=== PATIENT | male | born 1990 | race Hispanic/Latino ===

== ENCOUNTER 2017-07-05 13:22 | Emergency (ER) | payer SELFPAY ==
--- NOTE | 2017-07-05 16:21 | Emergency Department Report ---
Blank Doc - Documentation Documentation: 26yo male with PMHx of drug abuse came in complaining of bilateral lymph node swelling for 1 month and states its not getting better. P: cbc,chem, Ct abd/pelvis
[2017-07-05 16:41] LABS: Basophils # (Auto) 0.1 K/mm3 (0.0-0.1); Basophils % (Auto) 0.5 % (0.0-1.8); Eosinophils # (Auto) 0.2 K/mm3 (0.0-0.4); Eosinophils % (Auto) 1.3 % (0.0-4.3); Hematocrit 50.2 % (35.5-45.6); Hemoglobin 17.4 gm/dl (11.8-15.2); Lymphocytes # (Auto) 2.3 K/mm3 (1.2-5.4); Lymphocytes % (Auto) 17.3 % (13.4-35.0); Mean Corpuscular HGB Conc 35 % (32-34); Mean Corpuscular Hemoglobin 31 pg (28-32); Mean Corpuscular Volume 90 fl (84-94); Monocytes # (Auto) 1.2 K/mm3 (0.0-0.8); Platelet Count 367 K/mm3 (140-440); Red Blood Count 5.58 M/mm3 (3.65-5.03); Red Cell Distribution Width 12.8 % (13.2-15.2)
[2017-07-05 16:53] LABS: Bilirubin,Urine NEG (Negative); Blood,Urine NEG (Negative); Color,Urine Amber (Yellow); Mucus,Urine 1+ /HPF; Protein,Urine <15 mg/dL mg/dL (Negative)
[2017-07-05 17:00] LABS: Cocaine Screen,Urine PRESUMPTIVE NEGATIVE; Methadone Screen,Urine PRESUMPTIVE NEGATIVE; Opiate Screen,Urine PRESUMPTIVE NEGATIVE
[2017-07-05 17:05] LABS: Alanine Aminotransferase 9 units/L (7-56); Albumin 4.2 g/dL (3.9-5); BUN/Creatinine Ratio 15; Blood Urea Nitrogen 12 mg/dL (9-20); Calcium 9.6 mg/dL (8.4-10.2); Hemolysis Index 14
[2017-07-05 17:32] LABS: Amphetamine Screen,Urine PRESUMPTIVE POSITIVE; Benzodiazepines Screen,Urine PRESUMPTIVE POSITIVE; Cannabinoid Screen,Urine PRESUMPTIVE POSITIVE
--- NOTE | 2017-07-05 18:37 | Cat Scan Report ---
FINAL REPORT PROCEDURE: CT ABDOMEN PELVIS W CON TECHNIQUE: Computerized axial tomography of the abdomen and pelvis was performed after the IV injection of iodinated nonionic contrast. HISTORY: bilateral inguinal area swelling COMPARISON: No prior studies are available for comparison. FINDINGS: Visualized lower thorax: No significant abnormality. Liver: Normal size and attenuation. Spleen: Normal size and attenuation. Gallbladder and biliary system: Normal. Pancreas: Normal. Adrenals: Normal. Kidneys: Normal. GI tract: There appears to be mild diffuse right colon wall thickening. No appendiceal inflammation. No obstruction. Lymph nodes and mesentery: The inguinal lymph nodes bilaterally are enlarged with central low attenuation, compatible with necrosis/abscess. Largest confluent fluid collection in the right subcutaneous inguinal region measures 1.9 x 3.7 x 4.8 centimeters. Largest area in the left inguinal region subcutaneous tissues measures up to 3.1 x 1.5 x 2.4 centimeters. Vasculature: Normal. Bladder: Normal. Reproductive organs: Normal. Peritoneum: No free fluid. Musculoskeletal structures: Bilateral L5 pars interarticularis defects. Other: None. IMPRESSION: Bilateral necrotic appearing enlarged inguinal lymph nodes may be related to bacterial or atypical infection. Cannot exclude malignant adenopathy. Recommend further evaluation
--- NOTE | 2017-07-05 19:04 | Emergency Department Report ---
ED General Adult HPI - General Chief complaint: Pain General Stated complaint: LYMPHNODES IN GROIN SWOLLEN Time Seen by Provider: 07/05/17 16:06 Source: patient Mode of arrival: Ambulatory Limitations: No Limitations - History of Present Illness Initial comments: 26yo male with PMHx of drug abuse came in complaining of bilateral lymph node swelling for 1 month and states its not getting better. Patient denies any fever chills no abdominal pain or penile discharge or dysuria. He does admit to drug use meth we cocaine. He denies any IVDA user. He sexually active with women but not since is at the lymphadenopathy. Patient reports a family history of breast cancer in the mother's side. He smokes one pack per day. He denies any discharge from the lymph nodes. -: week(s) (4) Location: genitals (bilateral groin) Severity scale (0 -10): 2 Quality: aching Consistency: constant Improves with: none Worsens with: none Associated Symptoms: denies other symptoms Treatments Prior to Arrival: none - Related Data Previous Rx's Medication Instructions Recorded Last Taken Type Ciprofloxacin HCl [Cipro] 500 mg PO BID #28 tablet 07/05/17 Unknown Rx Clindamycin [Clindamycin CAP] 300 mg PO Q6H #40 capsule 07/05/17 Unknown Rx Oxycodone HCl/Acetaminophen 1 each PO Q6HR PRN #20 tablet 07/05/17 Unknown Rx [Percocet 7.5/325 mg] Allergies Allergy/AdvReac Type Severity Reaction Status Date / Time No Known Allergies Allergy Unverified 07/05/17 13:23 ED Review of Systems ROS: Stated complaint: LYMPHNODES IN GROIN SWOLLEN Other details as noted in HPI Constitutional: denies: chills, fever Respiratory: denies: cough, shortness of breath, wheezing Gastrointestinal: denies: abdominal pain, nausea, diarrhea Genitourinary: other (bilateral groin lymph node enlargement). denies: dysuria , discharge, testicular mass Musculoskeletal: denies: back pain, joint swelling, arthralgia Neurological: denies: headache, weakness, paresthesias Psychiatric: denies: anxiety, depression Hematological/Lymphatic: denies: easy bleeding, easy bruising ED Past Medical Hx - Past Medical History Previous Medical History?: Yes Additional medical history: Colitis - Surgical History Past Surgical History?: No - Social History Smoking Status: Current Every Day Smoker Substance Use Type: None - Medications Home Medications: Home Medications Medication Instructions Recorded Confirmed Last Taken Type Ciprofloxacin HCl [Cipro] 500 mg PO BID #28 tablet 07/05/17 Unknown Rx Clindamycin [Clindamycin CAP] 300 mg PO Q6H #40 capsule 07/05/17 Unknown Rx Oxycodone HCl/Acetaminophen 1 each PO Q6HR PRN #20 tablet 07/05/17 Unknown Rx [Percocet 7.5/325 mg] ED Physical Exam - General Limitations: No Limitations General appearance: alert, in no apparent distress - Head Head exam: Present: atraumatic, normocephalic - Eye Eye exam: Present: normal appearance - ENT ENT exam: Present: mucous membranes moist - Respiratory Respiratory exam: Present: normal lung sounds bilaterally. Absent: respiratory distress - Cardiovascular Cardiovascular Exam: Present: tachycardia - GI/Abdominal GI/Abdominal exam: Present: soft, normal bowel sounds - External exam: Present: erythema (bilateral groin), swelling (bilateral groin) - Extremities Exam Extremities exam: Present: normal inspection - Back Exam Back exam: Present: normal inspection - Neurological Exam Neurological exam: Present: alert, oriented X3 - Psychiatric Psychiatric exam: Present: normal affect, normal mood - Skin Skin exam: Present: warm, dry, intact, normal color. Absent: rash ED Course Vital Signs 07/05/17 07/05/17 07/05/17 13:23 19:26 22:10 Temperature 97.9 F 98.8 F Pulse Rate 101 H 102 H 92 H Respiratory 16 16 17 Rate Blood Pressure 130/92 116/82 O2 Sat by Pulse 98 100 98 Oximetry ED Medical Decision Making - Lab Data Result diagrams: 07/05/17 16:29 07/05/17 16:29 - Radiology Data Radiology results: report reviewed CT of the abdomen and pelvis impression: Bilateral necrotic appearing in large inguinal lymph node may be related to bacterial or atypical infection. Cannot exclude malignant adenopathy. Recommend further evaluation. - Medical Decision Making Patient has been evaluated by this provider as well as Dr. Yaa CASTILLO M.D. Dr. Beckman has been notified to evaluate for admission. CT of the abdomen shows concern for necrotizing lymph nodes. Critical care attestation.: If time is entered above; I have spent that time in minutes in the direct care of this critically ill patient, excluding procedure time. ED Disposition Clinical Impression: Abscess or cellulitis of groin Disposition: DC- TO HOME OR SELFCARE Is pt being admited?: No Does the pt Need Aspirin: No Condition: Good Instructions: Dental Abscess (ED), Abscess (ED) Prescriptions: Ciprofloxacin HCl [Cipro] 500 mg PO BID #28 tablet Clindamycin [Clindamycin CAP] 300 mg PO Q6H #40 capsule Oxycodone HCl/Acetaminophen [Percocet 7.5/325 mg] 1 each PO Q6HR PRN #20 tablet PRN Reason: Pain Referrals: KAIT DICKERSON MD [Staff Physician] - 3-5 Days PRIMARY CARE, [Primary Care Provider] - 3-5 Days
[2017-07-05 19:32] VITALS: BP 116/82
[2017-07-05] MEDS ORDERED: LEVAQUIN 750MG/150ML 750 MG/150 ML BAG IV ONE (19:40)
--- NOTE | 2017-07-05 20:00 | Event Note ---
Date: 07/05/17 Patient evaluated Bilateral inguinal cellulitis going onto abscess CT Report evaluated Discharge on PO cipro and Clindamycin F/u with OP clinc or Dr Grier Discharge diagnosis Bilateral inguinal cellulitis
== END 2017-07-05 22:10 | disposition home or self-care (01) ==
LOC: ED 13:22
DX: L03.314 Cellulitis of groin (principal); F17.200 Nicotine dependence, unspecified, uncomplicated
CPT/HCPCS: 36415; 74177; 80053; 80307; 81001; 85025; 96365; 96366; 99284; J1956; Q9967